=== PATIENT | female | born 1985 | race Caucasian/White ===

== ENCOUNTER 2019-08-07 13:09 | Emergency (ER) | payer MEDICAID ==
[~2019-08-07] VITALS: Ht 162.6 cm; Wt 72.0 kg
--- NOTE | 2019-08-07 13:45 | NUR ---
pt amb with steady gait using walker from lobby to room 8,
[2019-08-07 13:48] LABS: BASOPHILS # (AUTO) 0.1 X10'3 (0-0.2); EOSINOPHILS # (AUTO) 0.1 X10'3 (0-0.9); EOSINOPHILS % (AUTO) 0.9 % (0-6); HEMATOCRIT 36.6 % (35.0-45.0); HEMOGLOBIN 12.2 g/dl (12.0-16.0); LYMPHOCYTES # (AUTO) 1.8 X10'3 (1.1-4.8); LYMPHOCYTES % (AUTO) 23.5 % (21-51); MEAN CORPUSCULAR HEMOGLOBIN 28.4 PG (27.0-31.0); MEAN CORPUSCULAR HGB CONC 33.2 g/dL (33.0-36.5); MEAN CORPUSCULAR VOLUME 85.4 FL (78-98); MEAN PLATELET VOLUME 8.9 FL (7.4-10.4); MONOCYTES # (AUTO) 0.7 X10'3 (0-0.9); MONOCYTES % (AUTO) 8.5 % (2-12); NEUTROPHILS # (AUTO) 5.1 X10'3 (1.8-7.7); NEUTROPHILS % (AUTO) 66.1 % (42-75); PLATELET COUNT 181 X10'3 (140-440); RED BLOOD COUNT 4.29 X10'6 (4.20-5.60); RED CELL DISTRIBUTION WIDTH 13.6 % (11.5-14.5); WHITE BLOOD COUNT 7.7 X10'3 (4.5-11.0)
[2019-08-07 14:04] LABS: ALANINE AMINOTRANSFERASE 19 U/L (12-78); ALBUMIN/GLOBULIN RATIO 1.1 (1.1-1.5); ALKALINE PHOSPHATASE 46 IU/L (46-116); ANION GAP 8 (8-16); ASPARTATE AMINO TRANSFERASE 16 U/L (10-37); BILIRUBIN,TOTAL 0.3 MG/DL (0.1-1.0); BLOOD UREA NITROGEN 11 MG/DL (7-18); BUN/CREATININE RATIO 16.4 (6.6-38.0); CALCIUM 9.2 MG/DL (8.5-10.1); CHLORIDE 104 MMOL/L (99-107); CREATININE 0.67 MG/DL (0.40-0.90); GLUCOSE 81 MG/DL (70-104); POTASSIUM 3.6 MMOL/L (3.5-5.1); SODIUM 141 MMOL/L (135-145); TOTAL PROTEIN 7.7 G/DL (6.4-8.2); eGFR > 90 ML/MIN
[2019-08-07 14:15] LABS: ACETAMINOPHEN < 2.0 UG/ML (10-30); ETHANOL < 0.010 GM/DL (0.0-0.010); VALPROATE < 3.0 UG/ML (50-100)
--- NOTE | 2019-08-07 14:18 | NUR ---
pt amb with data technical lead to restroom
[2019-08-07 15:14] LABS: URINE HCG NEGATIVE (NEG)
[2019-08-07 15:21] LABS: CLARITY,URINE CLEAR (Clear); COLOR,URINE STRAW (Yellow); GLUCOSE, URINE NEGATIVE (Neg); KETONES,URINE NEGATIVE (Neg); LEUKOCYTE ESTERASE ,URINE TRACE (Neg); NITRITES, URINE NEGATIVE (Neg); OCCULT BLOOD,URINE NEGATIVE (Neg); PH,URINE 7.5 (4.8-8.0); PROTEIN,URINE NEGATIVE (Neg); UROBILINOGEN,URINE 0.2 E.U/dL (0.2-1.0)
[2019-08-07 15:22] LABS: URINE AMPHETAMINE SCREEN NEGATIVE (Neg); URINE BARBITUATE SCREEN NEGATIVE (Neg); URINE BENZODIAZEPINES SCREEN NEGATIVE (Neg); URINE CANNABINOID SCREEN POSITIVE (Neg); URINE COCAINE SCREEN NEGATIVE (Neg); URINE METHADONE SCREEN NEGATIVE (Neg); URINE OPIATE SCREEN NEGATIVE (Neg); URINE PHENCYCLIDINE SCREEN NEGATIVE (Neg)
[2019-08-07 15:23] LABS: UA COLLECTION TYPE CLN CATCH MIDSTREAM
[2019-08-07 15:32] LABS: SQUAMOUS EPITHELIAL CELL,UR FEW /LPF (FEW)
[2019-08-07 15:37] LABS: BACTERIA,URINE FEW /HPF (Neg); RBC,URINE 0-2 /HPF (0-2); WBC,URINE 0-4 /HPF (0-4)
[2019-08-07] MEDS ORDERED: proCHLORperazine 10 MG/2 ml inj IM ONE (16:15)
[2019-08-07] MEDS ORDERED: ketorolac tromethamine 15mg/ml inj. IM ONE (16:15)
--- NOTE | 2019-08-07 16:52 | NUR ---
RELIEVING RN FOR BREAK, PT IS RESTING QUIETLY ON GURNEY, CALM AND COOPERATIVE
[2019-08-07] MEDS ORDERED: mag hydrox/Alum hydrox/simeth 30ml oral suspension PO ONE (20:30)
--- NOTE | 2019-08-08 02:37 | NUR ---
Patient has been sleeping throughout the shift. When I questioned her earlier she denied current SI. However, RN from [facility] spoke with her and elected to write 5150 and keep her for furthur evaluation.
--- NOTE | 2019-08-08 07:30 | NUR ---
Pt denies S/H/I @ this time saying, "I was upset/angry/disappointed. While cleaning up in the kitchen, I just cut myself with a steak knife. It didn't hurt, but I instantly thought "that was stupid. Why did I do that?" Pt shared this was her first incident of non-suicidal self harm and that "I regret it." Pt further stated, "I want to life. My mom and I are planning on going on a vacation. I have things to look forward too." Pt maintaints good eye contact. Mood is stable and appropriate. She readily engaged with staff and was forthcoming. Pt denies audio/visual hallucinations @ this time.
--- NOTE | 2019-08-08 08:04 | NUR ---
RN received phone call from [facility] patient care representative: patient is accepted to [facility] and is expected to be admitted today.
[2019-08-08 10:02] VITALS: BP 124/69
[2019-08-08] MEDS ORDERED: OMEP-50 PO (12:08)
[2019-08-08] MEDS ORDERED: CITA10TA9 PO (12:08)
[2019-08-08] MEDS ORDERED: IBUP-1985 PO (12:08)
== END 2019-08-08 09:52 ==
LOC: ER 13:09
DX: R45.851 Suicidal ideations (principal); R94.6 Abnormal results of thyroid function studies; Z87.891 Personal history of nicotine dependence; Z88.5 Allergy status to narcotic agent; Z91.040 Latex allergy status
CPT/HCPCS: 36415; 80053; 80164; 80178; 80305; 80320; 80329; 81001; 81025; 84443; 85025; 96372; 99285; J0780; J1885

== ENCOUNTER 2019-08-08 08:00 | Inpatient (IN) | payer MEDICAID ==
[~2019-08-08] VITALS: Ht 160 cm; Wt 71.5 kg
[2019-08-08] MEDS ORDERED: mag hydrox/Alum hydrox/simeth 30ml oral suspension PO PRN (11:00)
[2019-08-08] MEDS ORDERED: acetaminophen 325mg tablet PO PRN ×2 (11:00)
[2019-08-08] MEDS ORDERED: magnesium hydroxide 30ml (MOM) UD suspension PO PRN (11:00)
[2019-08-08] MEDS ORDERED: hydrOXYzine 25 MG tablet PO PRN (11:00)
[2019-08-08] MEDS ORDERED: loperamide 2mg capsule PO PRN (11:00)
[2019-08-08 11:38] VITALS: BP 122/72
[2019-08-08] MEDS ORDERED: IBUP-1985 PO (12:08)
[2019-08-08] MEDS ORDERED: CITA10TA9 PO (12:08)
[2019-08-08] MEDS ORDERED: OMEP-50 PO (12:08)
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
[2019-08-08] MEDS ORDERED: ibuprofen 200mg tablet PO PRN (17:30)
[2019-08-08 19:36] VITALS: BP 115/70
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
[2019-08-09] MEDS: pantoprazole 40mg Tablet.DR PO SCH (07:40)
[2019-08-09] MEDS: CITALOpram 10mg tablet PO SCH (07:40)
[2019-08-09 08:00] VITALS: BP 114/62
[2019-08-09 08:57] LABS: CHOL/HDL RATIO 3.5 (0.00-4.99); CHOLESTEROL 178 MG/DL (0-200); HDL CHOLESTEROL 51 MG/DL (35-60); LDL CHOLESTEROL 117 MG/DL (50-100); TRIGLYCERIDES 46 MG/DL (20-135)
[2019-08-09 09:28] LABS: HEMOGLOBIN A1C 5.4 % (4.5-6.2)
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
[2019-08-09 19:00] VITALS: BP 120/70
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
[2019-08-10] MEDS: pantoprazole 40mg Tablet.DR PO SCH (07:50)
[2019-08-10] MEDS: CITALOpram 10mg tablet PO SCH (07:50)
[2019-08-10 08:00] VITALS: BP 115/75
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
[2019-08-10 20:10] VITALS: BP 134/54
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
[2019-08-11 07:30] VITALS: BP 97/61
[2019-08-11] MEDS: pantoprazole 40mg Tablet.DR PO SCH (07:43)
[2019-08-11] MEDS: CITALOpram 10mg tablet PO SCH (07:43)
[2019-08-11] MEDS ORDERED: OMEP-50 PO (11:28)
[2019-08-11] MEDS ORDERED: CARB100C2 PO (11:28)
[2019-08-11] MEDS ORDERED: CITA10TA9 PO (11:28)
--- NOTE | 2019-08-11 12:47 | NUR ---
Discharge Note: Patient belongings inventoried at BS with PCT. All personal items returned including medications which were held in pharmacy. Patient is free of symptoms of depression and states no SI. 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 All discharge instructions explained verbally and written instructions provided. medication education provided. Patient accompanied by PCT and mother to hospital lobby via ambulation with use of personal walker
--- NOTE | 2019-08-11 14:57 | NUR ---
Discharge Presenting Issues: Pt's ready for discharge. Interventions: SS met w/pt and finalized dcp with her. SS had t/c with [facility], per t/c a RN will contact pt to schedule her f/u w/PMD and discuss referral to [facility] Primary-psychiatric care provider. Plan: Pt to d/c home today. Annabel Mccloud [employer] Addendum: 08/11/19 at 1543 by Annabel Mccloud Amended: Links added.
[2019-08-11] MEDS ORDERED: carbamazepine 100mg ER CAPSULE (12-hour) PO SCH (20:00)
== END 2019-08-11 12:45 | disposition home or self-care (01) | DRG 751 ==
LOC: ADULT MH 08:00 → UNDOADMIN 10:06 → ADULT MH 10:06
PROVIDERS: ADMIT Psychiatry & Neurology Psychiatry; ATTEND Psychiatry & Neurology Psychiatry
DX: F33.1 Major depressive disorder, recurrent, moderate (principal); M41.9 Scoliosis, unspecified; M81.0 Age-related osteoporosis without current pathological fracture; Z96.643 Presence of artificial hip joint, bilateral; F12.90 Cannabis use, unspecified, uncomplicated; K21.9 Gastro-esophageal reflux disease without esophagitis; M19.90 Unspecified osteoarthritis, unspecified site; Z87.820 Personal history of traumatic brain injury; Z91.5 Personal history of self-harm; Z79.899 Other long term (current) drug therapy; Z88.5 Allergy status to narcotic agent; Z88.8 Allergy status to other drugs, medicaments and biological substances; Z91.040 Latex allergy status; Z90.49 Acquired absence of other specified parts of digestive tract
CPT/HCPCS: 36415; 80061; 83036; 87081; Z7610

== ENCOUNTER 2019-12-14 04:22 | Emergency (ER) | payer MEDICAID ==
[~2019-12-14] VITALS: Ht 160 cm; Wt 76.3 kg
[~2019-12-14 04:22] MED LIST: CARB100C2 PO; CITA10TA9 PO; IBUP-1985 PO; OMEP-50 PO
[2019-12-14] MEDS ORDERED: ibuprofen tablet 400 MG TABLET PO ONE (05:30)
[2019-12-14] MEDS ORDERED: acetaminophen 325mg tablet PO ONE (05:30)
[2019-12-14 06:17] VITALS: BP 123/75
== END 2019-12-14 06:19 | disposition home or self-care (01) ==
LOC: ER 04:22
DX: R07.81 Pleurodynia (principal); Z88.5 Allergy status to narcotic agent; Z88.8 Allergy status to other drugs, medicaments and biological substances; Z91.040 Latex allergy status; Z88.1 Allergy status to other antibiotic agents; Z79.899 Other long term (current) drug therapy
CPT/HCPCS: 71101; 99284

== ENCOUNTER 2020-02-12 10:23 | Emergency (ER) | payer MEDICAID ==
[~2020-02-12] VITALS: Ht 162.6 cm; Wt 75.9 kg
[2020-02-12 11:24] LABS: BASOPHILS % (AUTO) 0.7 % (0-1); EOSINOPHILS # (AUTO) 0.1 X10'3 (0-0.9); EOSINOPHILS % (AUTO) 1.4 % (0-6); HEMATOCRIT 35.8 % (35.0-45.0); HEMOGLOBIN 11.8 g/dl (12.0-16.0); LYMPHOCYTES # (AUTO) 1.3 X10'3 (1.1-4.8); LYMPHOCYTES % (AUTO) 23.2 % (21-51); MEAN CORPUSCULAR HEMOGLOBIN 27.4 PG (27.0-31.0); MEAN CORPUSCULAR HGB CONC 33.1 g/dL (33.0-36.5); MEAN CORPUSCULAR VOLUME 82.8 FL (78-98); MEAN PLATELET VOLUME 9.7 FL (7.4-10.4); MONOCYTES # (AUTO) 0.5 X10'3 (0-0.9); MONOCYTES % (AUTO) 9.5 % (2-12); NEUTROPHILS # (AUTO) 3.6 X10'3 (1.8-7.7); NEUTROPHILS % (AUTO) 65.2 % (42-75); PLATELET COUNT 168 X10'3 (140-440); RED BLOOD COUNT 4.32 X10'6 (4.20-5.60); RED CELL DISTRIBUTION WIDTH 14.3 % (11.5-14.5); WHITE BLOOD COUNT 5.6 X10'3 (4.5-11.0)
[2020-02-12 11:33] LABS: ALANINE AMINOTRANSFERASE 21 U/L (12-78); ALBUMIN 3.6 G/DL (3.4-5.0); ALBUMIN/GLOBULIN RATIO 0.9 (1.1-1.5); ALKALINE PHOSPHATASE 60 IU/L (46-116); ANION GAP 7 (8-16); ASPARTATE AMINO TRANSFERASE 13 U/L (10-37); BILIRUBIN,TOTAL 0.2 MG/DL (0.1-1.0); BLOOD UREA NITROGEN 10 MG/DL (7-18); BUN/CREATININE RATIO 18.2 (6.6-38.0); CALCIUM 9.1 MG/DL (8.5-10.1); CHLORIDE 102 MMOL/L (99-107); CREATININE 0.55 MG/DL (0.40-0.90); GLUCOSE 98 MG/DL (70-104); POTASSIUM 3.9 MMOL/L (3.5-5.1); SODIUM 138 MMOL/L (135-145); TOTAL CARBON DIOXIDE 28.6 MMOL/L (24-32); TOTAL PROTEIN 7.6 G/DL (6.4-8.2); eGFR > 90 ML/MIN
[2020-02-12] MEDS ORDERED: famotidine 20mg tablet PO ONE (12:05)
[2020-02-12] MEDS ORDERED: dicyclomine 10 MG capsule PO ONE (12:05)
[2020-02-12] MEDS ORDERED: mag hydrox/Alum hydrox/simeth 30ml oral suspension PO ONE (12:05)
[2020-02-12] MEDS ORDERED: MAG355OR18 PO (12:48)
[2020-02-12] MEDS ORDERED: DICY10CA88 PO (12:48)
[2020-02-12 14:08] VITALS: BP 126/78
== END 2020-02-12 14:10 | disposition home or self-care (01) ==
LOC: ER 10:24
DX: R10.13 Epigastric pain (principal); R10.12 Left upper quadrant pain; R11.0 Nausea; K21.9 Gastro-esophageal reflux disease without esophagitis; M19.90 Unspecified osteoarthritis, unspecified site; Z88.5 Allergy status to narcotic agent; Z91.040 Latex allergy status; Z88.8 Allergy status to other drugs, medicaments and biological substances; Z79.899 Other long term (current) drug therapy
CPT/HCPCS: 36415; 76700; 80053; 85025; 99284

== ENCOUNTER 2020-09-03 09:52 | Outpatient (CLI) | payer MEDICAID ==
[~2020-09-03] VITALS: Ht 165.1 cm; Wt 73.9 kg
[~2020-09-03 09:52] MED LIST changes: +DICY10CA88 PO
[2020-09-03] MEDS ORDERED: OMEP20TA5 PO (10:52)
[2020-09-03] MEDS ORDERED: CITA20TA19 PO (10:52)
[2020-09-03] MEDS ORDERED: TOPI25TA15 PO (10:55)
[2020-09-03] MEDS ORDERED: CHOL200074 PO (10:55)
[2020-09-03] MEDS ORDERED: CALC600T22 PO (10:55)
[2020-09-03] MEDS ORDERED: LORA10TA7 PO (10:55)
[2020-09-03] MEDS ORDERED: ASPI81TA52 PO (10:55)
[2020-09-03] MEDS ORDERED: MAGN400C PO (10:55)
[2020-09-03] MEDS ORDERED: ASCO-100 PO (10:55)
[2020-09-03 10:57] LABS: BASOPHILS % (AUTO) 0.7 % (0-1); EOSINOPHILS # (AUTO) 0.1 X10'3 (0-0.9); EOSINOPHILS % (AUTO) 1.5 % (0-6); HEMATOCRIT 38.7 % (35.0-45.0); HEMOGLOBIN 12.5 g/dl (12.0-16.0); LYMPHOCYTES # (AUTO) 1.4 X10'3 (1.1-4.8); MEAN CORPUSCULAR HEMOGLOBIN 27.4 PG (27.0-31.0); MEAN CORPUSCULAR HGB CONC 32.3 g/dL (33.0-36.5); MEAN CORPUSCULAR VOLUME 84.7 FL (78-98); MEAN PLATELET VOLUME 8.7 FL (7.4-10.4); MONOCYTES # (AUTO) 0.6 X10'3 (0-0.9); MONOCYTES % (AUTO) 8.9 % (2-12); NEUTROPHILS # (AUTO) 4.7 X10'3 (1.8-7.7); NEUTROPHILS % (AUTO) 67.9 % (42-75); PLATELET COUNT 189 X10'3 (140-440); RED BLOOD COUNT 4.56 X10'6 (4.20-5.60); RED CELL DISTRIBUTION WIDTH 15.2 % (11.5-14.5); WHITE BLOOD COUNT 6.9 X10'3 (4.5-11.0)
[2020-09-03 13:10] LABS: ALBUMIN 3.9 G/DL (3.4-5.0); ALKALINE PHOSPHATASE 66 IU/L (46-116); BLOOD UREA NITROGEN 10 MG/DL (7-18); BUN/CREATININE RATIO 14.9 (6.6-38.0); CALCIUM 9.2 MG/DL (8.5-10.1); CHLORIDE 106 MMOL/L (99-107); CREATININE 0.67 MG/DL (0.40-0.90); PRE OP ALT 22 U/L (30-65); PRE OP ANION GAP 12 (8-16); PRE OP AST 13 U/L (10-37); PRE OP BILIRUB, TOTAL 0.3 MG/DL (0.0-1.0); PRE OP GLUCOSE 81 MG/DL (70-104); PRE OP POTASSIUM 3.9 MMOL/L (3.4-5.1); PRE OP SODIUM 142 MMOL/L (135-145); eGFR > 90 ML/MIN
[2020-09-09] MEDS ORDERED: ringers solution, lacted 1,000 ML IV SCH (05:00)
[2020-09-09] MEDS ORDERED: cefazolin/dext.iso 2gm/100ml 100 ML IV ONE (05:30)
[2020-09-09] MEDS ORDERED: famotidine 20mg tablet PO ONE (05:30)
== END 2020-09-03 23:59 | disposition home or self-care (01) ==
LOC: PRE-OP 09:52 → EDSTATUS 09-09 07:30
PROVIDERS: ATTEND Surgery
DX: Z01.812 Encounter for preprocedural laboratory examination (principal); Z20.822 Contact with and (suspected) exposure to COVID-19
CPT/HCPCS: 36415; 80053; 85025; 87081; U0003

== ENCOUNTER 2021-01-04 12:29 | Outpatient (CLI) | payer MEDICAID ==
[~2021-01-04 12:29] MED LIST changes: +ASCO-100 PO; +ASPI81TA52 PO; +CALC600T22 PO; -CARB100C2 PO; +CHOL200074 PO; -CITA10TA9 PO; +CITA20TA19 PO; -DICY10CA88 PO; -IBUP-1985 PO; +LORA10TA7 PO; +MAGN400C PO; -OMEP-50 PO; +OMEP20TA5 PO; +TOPI25TA15 PO
[2021-01-04 13:51] LABS: BASOPHILS % (AUTO) 0.6 % (0-1); EOSINOPHILS # (AUTO) 0.1 X10'3 (0-0.9); EOSINOPHILS % (AUTO) 1.3 % (0-6); HEMOGLOBIN 10.6 g/dl (12.0-16.0); LYMPHOCYTES # (AUTO) 1.8 X10'3 (1.1-4.8); LYMPHOCYTES % (AUTO) 22.5 % (21-51); MEAN CORPUSCULAR HEMOGLOBIN 25.6 PG (27.0-31.0); MEAN CORPUSCULAR VOLUME 80.1 FL (78-98); MEAN PLATELET VOLUME 9.5 FL (7.4-10.4); MONOCYTES # (AUTO) 0.6 X10'3 (0-0.9); MONOCYTES % (AUTO) 7.9 % (2-12); NEUTROPHILS # (AUTO) 5.3 X10'3 (1.8-7.7); NEUTROPHILS % (AUTO) 67.7 % (42-75); PLATELET COUNT 189 X10'3 (140-440); RED BLOOD COUNT 4.12 X10'6 (4.20-5.60); RED CELL DISTRIBUTION WIDTH 14.7 % (11.5-14.5); WHITE BLOOD COUNT 7.8 X10'3 (4.5-11.0)
[2021-01-04 14:06] LABS: ALANINE AMINOTRANSFERASE 30 U/L (12-78); ALBUMIN 3.8 G/DL (3.4-5.0); ALKALINE PHOSPHATASE 57 IU/L (46-116); ANION GAP 10 (8-16); ASPARTATE AMINO TRANSFERASE 19 U/L (10-37); BILIRUBIN,TOTAL 0.2 MG/DL (0.1-1.0); BLOOD UREA NITROGEN 6 MG/DL (7-18); BUN/CREATININE RATIO 9.7 (6.6-38.0); CALCIUM 8.4 MG/DL (8.5-10.1); CHLORIDE 104 MMOL/L (99-107); CREATININE 0.62 MG/DL (0.40-0.90); GLUCOSE 84 MG/DL (70-104); POTASSIUM 3.5 MMOL/L (3.5-5.1); SODIUM 140 MMOL/L (135-145); TOTAL CARBON DIOXIDE 26.3 MMOL/L (24-32); TOTAL PROTEIN 7.8 G/DL (6.4-8.2); eGFR > 90 ML/MIN
== END 2021-01-04 23:59 | disposition home or self-care (01) ==
LOC: LAB 12:29
DX: K21.00 Gastro-esophageal reflux disease with esophagitis, without bleeding (principal)
CPT/HCPCS: 36415; 80053; 85025; 93005

== ENCOUNTER 2021-05-21 13:05 | Emergency (ER) | payer MEDICAID ==
[~2021-05-21] VITALS: Ht 160 cm; Wt 74.0 kg
[2021-05-21 14:17] LABS: BASOPHILS % (AUTO) 0.4 % (0-1); EOSINOPHILS # (AUTO) 0.1 X10'3 (0-0.9); EOSINOPHILS % (AUTO) 1.4 % (0-6); HEMOGLOBIN 11.6 g/dl (12.0-16.0); LYMPHOCYTES # (AUTO) 1.1 X10'3 (1.1-4.8); LYMPHOCYTES % (AUTO) 12.2 % (21-51); MEAN CORPUSCULAR HEMOGLOBIN 24.6 PG (27.0-31.0); MEAN CORPUSCULAR HGB CONC 32.2 g/dL (33.0-36.5); MEAN CORPUSCULAR VOLUME 76.5 FL (78-98); MEAN PLATELET VOLUME 8.8 FL (7.4-10.4); MONOCYTES # (AUTO) 0.7 X10'3 (0-0.9); MONOCYTES % (AUTO) 7.6 % (2-12); NEUTROPHILS # (AUTO) 6.8 X10'3 (1.8-7.7); NEUTROPHILS % (AUTO) 78.4 % (42-75); PLATELET COUNT 229 X10'3 (140-440); RED BLOOD COUNT 4.71 X10'6 (4.20-5.60); WHITE BLOOD COUNT 8.7 X10'3 (4.5-11.0)
[2021-05-21 14:27] LABS: ALANINE AMINOTRANSFERASE 55 U/L (12-78); ALBUMIN 3.8 G/DL (3.4-5.0); ALBUMIN/GLOBULIN RATIO 0.8 (1.1-1.5); ALKALINE PHOSPHATASE 64 IU/L (46-116); ANION GAP 11 (8-16); ASPARTATE AMINO TRANSFERASE 24 U/L (10-37); BILIRUBIN,TOTAL 0.3 MG/DL (0.1-1.0); BLOOD UREA NITROGEN 12 MG/DL (7-18); BUN/CREATININE RATIO 20.7 (6.6-38.0); C-REACTIVE PROTEIN 7.66 MG/DL (0.0-0.5); CALCIUM 9.5 MG/DL (8.5-10.1); CHLORIDE 99 MMOL/L (99-107); CREATININE 0.58 MG/DL (0.40-0.90); GLUCOSE 106 MG/DL (70-104); SODIUM 138 MMOL/L (135-145); TOTAL CARBON DIOXIDE 27.7 MMOL/L (24-32); TOTAL PROTEIN 8.7 G/DL (6.4-8.2); eGFR > 90 ML/MIN
[2021-05-21] MEDS ORDERED: normal saline 1000ML IV soln IVB ONE (18:05)
[2021-05-21] MEDS ORDERED: fentaNYL/PF 50MCG/1 ML 2ML syringe IV ONE ×3 (22:25→23:35)
[2021-05-22] MEDS ORDERED: fentaNYL/PF 50MCG/1 ML 2ML syringe IV ONE (02:45)
--- NOTE | 2021-05-22 06:52 | NUR ---
Reach called at 0650 and said transfer to [facility] will be postponed due to weather. Will recheck at 0800.
--- NOTE | 2021-05-22 07:27 | NUR ---
Patient assisted back to bed from bedside commode.
--- NOTE | 2021-05-22 10:50 | NUR ---
Report called to CHANTALE Valencia at [place] [id number].
[2021-05-22 11:16] VITALS: BP 115/74
== END 2021-05-22 11:18 | disposition hospice, inpatient (51) ==
LOC: ER 13:05
DX: T81.9XXA Unspecified complication of procedure, initial encounter (principal); K21.9 Gastro-esophageal reflux disease without esophagitis; Z88.5 Allergy status to narcotic agent; Z91.040 Latex allergy status; Z79.899 Other long term (current) drug therapy; Z20.822 Contact with and (suspected) exposure to COVID-19
CPT/HCPCS: 36415; 71250; 74176; 80053; 84145; 85025; 86140; 87635; 96361; 96374; 96376; 99285; C9803; J3010; J7030

== ENCOUNTER 2021-06-03 17:04 | Emergency (ER) | payer MEDICAID ==
[~2021-06-03] VITALS: Ht 160 cm; Wt 76.4 kg
[2021-06-03 18:41] LABS: URINE HCG NEGATIVE (NEG)
[2021-06-03 18:43] LABS: CLARITY,URINE CLEAR (Clear); COLOR,URINE YELLOW (Yellow); GLUCOSE, URINE NEGATIVE (Neg); KETONES,URINE NEGATIVE (Neg); LEUKOCYTE ESTERASE ,URINE NEGATIVE (Neg); NITRITES, URINE NEGATIVE (Neg); OCCULT BLOOD,URINE NEGATIVE (Neg); PH,URINE 6.5 (4.8-8.0); PROTEIN,URINE NEGATIVE (Neg); UROBILINOGEN,URINE 0.2 E.U/dL (0.2-1.0)
[2021-06-03 18:44] LABS: BASOPHILS # (AUTO) 0.1 X10'3 (0-0.2); BASOPHILS % (AUTO) 1.6 % (0-1); EOSINOPHILS # (AUTO) 0.1 X10'3 (0-0.9); EOSINOPHILS % (AUTO) 1.4 % (0-6); HEMATOCRIT 31.2 % (35.0-45.0); HEMOGLOBIN 10.3 g/dl (12.0-16.0); LYMPHOCYTES # (AUTO) 1.4 X10'3 (1.1-4.8); LYMPHOCYTES % (AUTO) 16.8 % (21-51); MEAN CORPUSCULAR VOLUME 75.7 FL (78-98); MEAN PLATELET VOLUME 8.6 FL (7.4-10.4); MONOCYTES # (AUTO) 0.8 X10'3 (0-0.9); MONOCYTES % (AUTO) 9.9 % (2-12); NEUTROPHILS # (AUTO) 5.8 X10'3 (1.8-7.7); NEUTROPHILS % (AUTO) 70.3 % (42-75); PLATELET COUNT 397 X10'3 (140-440); RED BLOOD COUNT 4.12 X10'6 (4.20-5.60); RED CELL DISTRIBUTION WIDTH 16.1 % (11.5-14.5); WHITE BLOOD COUNT 8.3 X10'3 (4.5-11.0)
[2021-06-03 18:54] LABS: UA COLLECTION TYPE CLN CATCH MIDSTREAM
[2021-06-03 18:59] LABS: ALANINE AMINOTRANSFERASE 38 U/L (12-78); ALBUMIN 3.5 G/DL (3.4-5.0); ALBUMIN/GLOBULIN RATIO 0.7 (1.1-1.5); ALKALINE PHOSPHATASE 74 IU/L (46-116); ANION GAP 12 (8-16); ASPARTATE AMINO TRANSFERASE 15 U/L (10-37); BILIRUBIN,TOTAL 0.2 MG/DL (0.1-1.0); BLOOD UREA NITROGEN 10 MG/DL (7-18); BUN/CREATININE RATIO 14.5 (6.6-38.0); CALCIUM 9.2 MG/DL (8.5-10.1); CHLORIDE 100 MMOL/L (99-107); CREATININE 0.69 MG/DL (0.40-0.90); GLUCOSE 98 MG/DL (70-104); LIPASE 500 U/L (73-393); POTASSIUM 3.8 MMOL/L (3.5-5.1); SODIUM 140 MMOL/L (135-145); TOTAL CARBON DIOXIDE 28.4 MMOL/L (24-32); TOTAL PROTEIN 8.2 G/DL (6.4-8.2); eGFR > 90 ML/MIN
[2021-06-03] MEDS ORDERED: ondansetron/PF 4mg/2ml inj IV ONE (23:05)
[2021-06-03] MEDS ORDERED: fentaNYL/PF 50MCG/1 ML 2ML syringe IV ONE (23:05)
[2021-06-03] MEDS ORDERED: normal saline 1000ML IV soln IVB ONE (23:05)
[2021-06-03] MEDS ORDERED: iohexol 300mg/ml 100ml inj. ONE (23:10)
[2021-06-04 01:07] VITALS: BP 127/76
== END 2021-06-04 01:05 | disposition home or self-care (01) ==
LOC: ER 17:04
DX: R10.12 Left upper quadrant pain (principal); K21.9 Gastro-esophageal reflux disease without esophagitis; Z98.890 Other specified postprocedural states; Z88.5 Allergy status to narcotic agent; Z91.040 Latex allergy status; Z88.1 Allergy status to other antibiotic agents; Z88.8 Allergy status to other drugs, medicaments and biological substances; Z79.82 Long term (current) use of aspirin; Z79.899 Other long term (current) drug therapy
CPT/HCPCS: 36415; 74177; 80053; 81003; 81025; 83605; 83690; 85025; 96374; 96375; 99285; J2405; J3010; J7030; Q9967